=== PATIENT | male | born 1965 | race Caucasian/White ===

== ENCOUNTER 2019-06-26 15:22 | Emergency (ER) | payer BC ==
[2019-06-26 15:49] LABS: BASOPHILS % (AUTO) 0.3 %; EOSINOPHILS % (AUTO) 0.2 %; HGB - HEMOGLOBIN 16.2 g/dL (14.0-18.0); LYMPHOCYTES # (AUTO) 0.7 10^3/uL (1.5-3.5); LYMPHOCYTES % (AUTO) 5.4 %; MEAN CORPUSCULAR HEMOGLOBIN 29.5 pg (27.0-31.0); MEAN CORPUSCULAR HGB CONC 34.2 g/dL (32.0-36.0); MEAN CORPUSCULAR VOLUME 86.2 fL (80.0-94.0); MEAN PLATELET VOLUME 9.8 fL (7.4-11.4); MONOCYTES # (AUTO) 0.7 10^3/uL (0.0-1.0); MONOCYTES % (AUTO) 5.3 %; NEUTROPHILS # (AUTO) 10.9 10^3/uL (1.5-6.6); NEUTROPHILS % (AUTO) 88.3 %; PLT - PLATELET COUNT 186 10^3/uL (130-450); RED CELL DISTRIBUTION WIDTH 12.3 % (12.0-15.0); WHITE BLOOD COUNT 12.4 x10^3/uL (4.8-10.8)
[2019-06-26 16:01] LABS: ALBUMIN 4.2 g/dL (3.2-5.5); ALBUMIN/GLOBULIN RATIO 1.4 (1.0-2.2); BILIRUBIN,TOTAL 0.8 mg/dL (0.2-1.0); CALCIUM 9.3 mg/dL (8.5-10.3); CREATININE 0.9 mg/dL (0.6-1.2); TOTAL PROTEIN 7.1 g/dL (6.7-8.2)
--- NOTE | 2019-06-26 16:39 | ED Physician Documentation ---
PD HPI ABD PAIN - Stated complaint Stated Complaint: ABD PX - Chief complaint Chief Complaint: Abd Pain - History obtained from History obtained from: Patient - History of Present Illness Timing - onset: Today (He developed upper abdominal pain with mild radiation to the mid back this morning. It was associated with loose bowel movement this morning. He has not been nauseous. Of note he has coronary disease but had a clean angiogram per him a month ago. He has no history of abdominal surgeries. No abnormal colonoscopies per him. The pain was severe but is somewhat better now.) Review of Systems Ten Systems: 10 systems reviewed and negative Constitutional: denies: Fever, Chills Throat: denies: Dental pain / toothache, Sore throat Cardiac: denies: Chest pain / pressure, Palpitations Respiratory: denies: Dyspnea, Cough PD PAST MEDICAL HISTORY - Present Medications Home Medications: Ambulatory Orders Medication Instructions Recorded Confirmed Hydrocodone/Acetaminophen 1 - 2 each PO Q6H PRN #7 tablet 06/26/19 [Hydrocodon-Acetaminophen 5-325] - Allergies Allergies/Adverse Reactions: Allergies Allergy/AdvReac Type Severity Reaction Status Date / Time No Known Drug Allergies Allergy Verified 06/26/19 15:31 PD ED PE NORMAL - Vitals Vital signs reviewed: Yes - General General: Alert and oriented X 3, No acute distress - HEENT HEENT: PERRL, EOMI - Neck Neck: Supple, no meningeal sign, No bony TTP - Cardiac Cardiac: RRR, No murmur - Respiratory Respiratory: No respiratory distress, Clear bilaterally - Abdomen Abdomen: Normal bowel sounds, Soft, Other (Most tenderness is in the left lower quadrant, mild epigastric tenderness. No surgical signs.) - Extremities Extremities: No edema, No calf tenderness / cord - Neuro Neuro: Alert and oriented X 3, Normal speech Results - Vitals Vitals: Vital Signs - 24 hr 06/26/19 15:29 Temperature 36.7 C Heart Rate 65 Respiratory 20 Rate Blood Pressure 148/87 H O2 Saturation 97 Oxygen O2 Source Room air - Labs Labs: Laboratory Tests 06/26/19 06/26/19 06/26/19 15:45 15:45 17:38 WBC 12.4 H RBC 5.50 Hgb 16.2 Hct 47.4 MCV 86.2 MCH 29.5 MCHC 34.2 RDW 12.3 Plt Count 186 MPV 9.8 Neut # (Auto) 10.9 H Lymph # (Auto) 0.7 L Cooper # (Auto) 0.7 Eos # (Auto) 0.0 Baso # (Auto) 0.0 Absolute Nucleated RBC 0.00 Nucleated RBC % 0.0 Sodium 138 Potassium 4.2 Chloride 103 Carbon Dioxide 27 Anion Gap 8.0 BUN 15 Creatinine 0.9 Estimated GFR (MDRD) 88 L Glucose 115 H Lactic Acid 1.3 Calcium 9.3 Total Bilirubin 0.8 AST 21 ALT 34 Alkaline Phosphatase 63 Total Protein 7.1 Albumin 4.2 Globulin 2.9 Albumin/Globulin Ratio 1.4 Lipase 29 Urine Color Urine Clarity Urine pH Ur Specific [place] Urine Protein Urine Glucose (UA) Urine Ketones Urine Occult Blood Urine Nitrite Urine Bilirubin Urine Urobilinogen Ur Leukocyte Esterase Ur Microscopic Review Urine Culture Comments 06/26/19 17:45 WBC RBC Hgb Hct MCV MCH MCHC RDW Plt Count MPV Neut # (Auto) Lymph # (Auto) Cooper # (Auto) Eos # (Auto) Baso # (Auto) Absolute Nucleated RBC Nucleated RBC % Sodium Potassium Chloride Carbon Dioxide Anion Gap BUN Creatinine Estimated GFR (MDRD) Glucose Lactic Acid Calcium Total Bilirubin AST ALT Alkaline Phosphatase Total Protein Albumin Globulin Albumin/Globulin Ratio Lipase Urine Color YELLOW Urine Clarity CLEAR Urine pH 6.0 Ur Specific [place] 1.010 Urine Protein NEGATIVE Urine Glucose (UA) NEGATIVE Urine Ketones NEGATIVE Urine Occult Blood TRACE-INTA Urine Nitrite NEGATIVE Urine Bilirubin NEGATIVE Urine Urobilinogen 0.2 (NORMAL) Ur Leukocyte Esterase NEGATIVE Ur Microscopic Review NOT INDICATED Urine Culture Comments NOT INDICATED - Rads (name of study) CT A/P Radiology: EMP read contemporaneously (Edema and small amount of amount of free fluid adjacent to mall's multiple bowel loops, could be enteritis versus ischemia.) PD MEDICAL DECISION MAKING - ED course ED course: CT as shown. Doubt ischemic bowel disease as his pain is not severe at this juncture. Lactate was normal. He declined pain medications while here. Advise close return precautions if worse. Departure - Departure Disposition: 01 Home, Self Care Clinical Impression: Enteritis Condition: Good Record reviewed to determine appropriate education?: Yes Instructions: ED Abdominal Pain Unkn Cause Male Prescriptions: Hydrocodone/Acetaminophen [Hydrocodon-Acetaminophen 5-325] 1 - 2 each PO Q6H PRN #7 tablet PRN Reason: pain Comments: As discussed, your CAT scan shows inflammation of the small bowel. Based on what we know at this juncture this is most likely viral. If pain becomes severe again please return immediately for reevaluation. If you develop a small amount of diarrhea later I would not be surprised. Also return for fevers. Also return if not better in 24 hours.
[2019-06-26] MEDS ORDERED: IOVERSOL 320 100 ML VIAL IVP ONE ×2 (16:56→17:00)
--- NOTE | 2019-06-26 17:40 | CT Report ---
Reason: IV only, upper abd pain, but LLQ TTP Procedure Date: 06/26/2019 Accession Number: [id number] / [id number] Procedure: CT - Abdomen/Pelvis W CPT Code: FULL RESULT: EXAM: CT ABDOMEN AND PELVIS EXAM DATE: 06/26/2019 04:59 PM. CLINICAL HISTORY: Upper abdomen pain, left lower quadrant tender to palpation COMPARISONS: None. TECHNIQUE: Routine helical CT imaging was performed through the abdomen and pelvis. IV contrast: OPTI 320 100ML. Enteric contrast: No. Reconstructions: Coronal and sagittal. In accordance with CT protocol optimization, one or more of the following dose reduction techniques were utilized for this exam: automated exposure control, adjustment of mA and/or KV based on patient size, or use of iterative reconstructive technique. FINDINGS: Lung Bases: Unremarkable. Liver: Normal. No masses. Gallbladder/Bile Ducts: Unremarkable. Spleen: Normal. Pancreas: Normal. Adrenal Glands: Normal. Kidneys: Normal. No masses or hydronephrosis. Peritoneal Cavity/Bowel: Edema and a small amount of free fluid are seen adjacent to multiple small bowel loops seen in the abdomen and pelvis more on the right side. There appears to be a loop of small bowel with wall thickening and peripherally located gas where pneumatosis is possible, seen in the mid abdomen, see axial image 57. Small bowel ischemia could be present. Correlate with the lactic acid. Acute enteritis could be present. No dilated bowel loops are seen to suggest obstruction. Increased density seen in a couple of small bowel loops in the left lower aspect, could be ingested material. Blood is not excluded. The appendix appears within normal limits. Mild descending colon and sigmoid colon diverticulosis at the junction. Small free fluid in the pelvis. No free air. Pelvic Organs: Normal. The bladder and visualized pelvic organs are within normal limits. Vasculature: No acute findings. Superior mesenteric artery appears patent. No acute bone findings. IMPRESSION: 1. Edema and a small amount of free fluid are seen adjacent to multiple small bowel loops seen in the abdomen and pelvis more on the right side. There appears to be a loop of small bowel with wall thickening and peripherally located gas where pneumatosis is possible. Small bowel ischemia could be present. Correlate with the lactic acid lab results. Acute enteritis could be present. See above. 2. Mild descending and sigmoid colon junction diverticulosis. 3. See above. [facility] The critical result notification system was initiated by Dr. Court Fiore at 05:26 PM on 06/26/2019. The above critical result findings were discussed with Pasha Morel by Dr. Court Fiore at 05:31 PM on 06/26/2019.
[2019-06-26 17:53] LABS: BILIRUBIN,URINE NEGATIVE (NEGATIVE); GLUCOSE, URINE (UA) NEGATIVE (NEGATIVE); KETONES,URINE (UA) NEGATIVE (NEGATIVE); LEUKOCYTE ESTERASE, URINE NEGATIVE (NEGATIVE); NITRITE,URINE NEGATIVE (NEGATIVE); OCCULT BLOOD,URINE TRACE-INTA (NEGATIVE); PROTEIN,URINE NEGATIVE (NEGATIVE); UROBILINOGEN,URINE 0.2 (NORMAL) E.U./dL (NORMAL)
[2019-06-26 17:57] LABS: CLARITY,URINE CLEAR (CLEAR)
[2019-06-26 18:15] VITALS: BP 153/91
== END 2019-06-26 18:16 | disposition home or self-care (01) ==
LOC: ED 15:22
DX: K52.9 Noninfective gastroenteritis and colitis, unspecified (principal); K57.30 Diverticulosis of large intestine without perforation or abscess without bleeding; I25.10 Atherosclerotic heart disease of native coronary artery without angina pectoris
CPT/HCPCS: 36415; 74177; 80053; 81003; 83605; 83690; 85025; 99284; Q9967; 81001; 87086